=== PATIENT | female | born 1985 | race Two or more races ===

== ENCOUNTER → 2018-10-13 | Outpatient (CLI) | payer OTHER ==
--- NOTE | 2018-10-13 10:54 | REP ---
Chest two views HISTORY: Fever Comparison: None The lungs are clear. The heart is normal in size. The pulmonary vasculature is normal in appearance. The bony structure is intact. IMPRESSION: No acute disease. Electronically Signed by Francis Srinivasan MD 10/13/2018 10:45 A
== END ==
LOC: M LRY 10:12
PROVIDERS: ATTEND Nurse Practitioner Family
DX: R50.9 Fever, unspecified (principal)